=== PATIENT | male | born 1975 | race Caucasian/White ===

== ENCOUNTER → 2019-01-26 | Outpatient (CLI) | payer MEDICAID | LOC: MC.RAD 13:29 | DX: N63.41 Unspecified lump in right breast, subareolar (principal); N63.11 Unspecified lump in the right breast, upper outer quadrant ==

== ENCOUNTER → 2019-02-04 | Outpatient (CLI) | payer MEDICAID | LOC: MC.RAD 12:45 | DX: N63.41 Unspecified lump in right breast, subareolar (principal) | CPT/HCPCS: G0279 ==

== ENCOUNTER 2019-04-19 08:02 | Day surgery (SDC) | payer MEDICAID ==
[~2019-04-19] VITALS: Ht 184.2 cm; Wt 167.9 kg
[2019-04-19] MEDS ORDERED: HCTZ 25MG TAB25 MG PO (08:36)
[2019-04-19 08:37] VITALS: BP 145/89; PULSE 102; TEMP 97.9
[2019-04-19] MEDS ORDERED: COZAAR100 MG PO (08:37)
--- NOTE | 2019-04-19 08:43 | NUR ---
TO RM AT 0805- CALL LIGHT IN REACH MOTHER AT BEDSIDE.
[2019-04-19 09:55] VITALS: BP 126/71; PULSE 94; TEMP 97.6
--- NOTE | 2019-04-19 09:55 | NUR ---
TO RM 4 PER CART FROM ENDOSCOPY. AMBULATED TO RECLINER WITH ASSIST. ALERT ORIENTED X3 AND TALKING TO STAFF. MOTHER AT BEDSIDE. RECEIVED WATER.
[2019-04-19 10:10] VITALS: BP 114/86; PULSE 106
--- NOTE | 2019-04-19 10:10 | NUR ---
DR CHAVEZ INTO TALKING TO PATIENT AND MOTHER.
--- NOTE | 2019-04-19 10:25 | NUR ---
RECEIVED COFFEE AND MUFFIN
--- NOTE | 2019-04-19 10:50 | NUR ---
ATE 100% AND TOLERATED WELL RECEIVED DISCHARGE INSTRUCTIONS AND VERBALIZED UNDERSTANDING. DISCONTINUED IV AND INT. PATIENT TO BATHROOM.
--- NOTE | 2019-04-19 11:00 | NUR ---
DISCHARGED PER WC BY NURSING STAFF TO PRIVATE [facility]
== END 2019-04-19 11:00 | disposition home or self-care (01) ==
LOC: SDCO 08:02
DX: K21.0 Gastro-esophageal reflux disease with esophagitis (principal); K63.5 Polyp of colon; K25.9 Gastric ulcer, unspecified as acute or chronic, without hemorrhage or perforation; K29.80 Duodenitis without bleeding; K31.89 Other diseases of stomach and duodenum; K92.1 Melena; K64.4 Residual hemorrhoidal skin tags; E66.01 Morbid (severe) obesity due to excess calories; K76.0 Fatty (change of) liver, not elsewhere classified; D64.9 Anemia, unspecified; F17.290 Nicotine dependence, other tobacco product, uncomplicated; Z68.43 Body mass index [BMI] 50.0-59.9, adult; G47.33 Obstructive sleep apnea (adult) (pediatric); I10 Essential (primary) hypertension; Z88.1 Allergy status to other antibiotic agents; Z88.8 Allergy status to other drugs, medicaments and biological substances; Z79.52 Long term (current) use of systemic steroids
CPT/HCPCS: J2704; J7030

== ENCOUNTER → 2020-07-19 | Outpatient (REF) ==
[~2020-07-19] MED LIST: COZAAR100 MG PO; HCTZ 25MG TAB25 MG PO; NORCO 325 MG-51 TAB PO
== END ==
LOC: ZLAB.WCH 15:34
DX: Z01.89 Encounter for other specified special examinations (principal)

== ENCOUNTER → 2021-03-12 | Day surgery (SDC) | payer MEDICAID ==
[2021-03-12] VITALS (8 sets, daily range): BP systolic 119–170; BP diastolic 68–100; PULSE 79–102; TEMP 98–98.9
[~2021-03-12] VITALS: Ht 185.4 cm; Wt 172.9 kg
--- NOTE | 2021-03-12 16:23 | NUR ---
PT RETURNED FROM THE PACU PER CART, PT WAS SITTING UP TO CATCH HIS BREATH. PT RATES PAIN 'MINIMAL'. PT RUNNING 93% ON 4L. PT ALERT TO NAME, PLACE AND TIME. PT. MOMMEGAN WAS IN THE ROOM. LUNGS CLEAR ON THE RIGHT AND DIMINISHED. ENCOURAGED PATIENT TO DEEP BREATH AND COUGH. PT LUNGS WERE SLIGHTLY WHEEZING TO LEFT UPPER LOBE AND CLEARED WITH DEEP BREATHING AND COUGHING. HRR AND TACHY. BOWEL SOUNDS PRESENT AND HYPOACTIVE. REEQUESTED WATER AND PUDDING. WILL CONT TO MONITOR.
--- NOTE | 2021-03-12 16:31 | NUR ---
PT TOLERATING FOOD AND FLUIDS. WILL CONT TO MONITOR.
--- NOTE | 2021-03-12 16:34 | NUR ---
PT TOLERATING FOOD AND FLUIDS, DENIES NAUSEA AND VOMITING AND HAS MINIMAL PAIN, HE STATES. CONTINUES TO SIT UP AND FEELS BETTER SITTING UP THAN LYING DOWN. DRESSINGS DRY AND ABDOMINAL BINDER IS ON. PT UP TO VOID WITHOUT DIFFICULTY. WILL CONT TO MONITOR PROGRESS.
--- NOTE | 2021-03-12 16:38 | NUR ---
PT STATED HE WANTED TO, 'STAND UP FOR AWHILE' AFTER HE VOIDED. PT WAS ABLE TO COUGH AND DEEP BREATH WITH THE BINDER ON EASIER. PT DENIES SHORTNESS OF BREATH AND IS RUNNING 93% ON ROOM AIR. ADMISSION O2 WAS 94% ON RA. IV WAS DC'D PATIENT IS TOLERATING FLUIDS WITHOUT DIFFICULTY. PT CONTINUES TO DENY PAIN.
--- NOTE | 2021-03-12 16:46 | NUR ---
PT SIGNED DISCHARGE INSTRUCTIONS, VOICES UNDERSTANDING OF EDUCATION PACKET. PT WAS TAKEN OUT THROUGH THE ER PER WC. MOMMEGAN WAS DRIVING FAMILY VEHICLE.
== END ==
LOC: SDCO 10:17
DX: K42.0 Umbilical hernia with obstruction, without gangrene (principal); I10 Essential (primary) hypertension; G47.33 Obstructive sleep apnea (adult) (pediatric); K21.9 Gastro-esophageal reflux disease without esophagitis; D64.9 Anemia, unspecified; E88.81 Metabolic syndrome and other insulin resistance; I11.0 Hypertensive heart disease with heart failure; I50.9 Heart failure, unspecified; I48.0 Paroxysmal atrial fibrillation; E66.01 Morbid (severe) obesity due to excess calories; F17.210 Nicotine dependence, cigarettes, uncomplicated; Z68.42 Body mass index [BMI] 45.0-49.9, adult; Z20.822 Contact with and (suspected) exposure to COVID-19; Z79.899 Other long term (current) drug therapy; Z99.89 Dependence on other enabling machines and devices; Z80.3 Family history of malignant neoplasm of breast; Z80.8 Family history of malignant neoplasm of other organs or systems; Z83.3 Family history of diabetes mellitus
CPT/HCPCS: C1781; J0330; J0690; J1100; J1170; J2405; J2704; J3010; J7120

== ENCOUNTER → 2021-08-07 | Outpatient (CLI) | payer OTHER | LOC: COL.RAD 09:47 | DX: Z02.71 Encounter for disability determination (principal); M51.36 Other intervertebral disc degeneration, lumbar region; M53.3 Sacrococcygeal disorders, not elsewhere classified ==